=== PATIENT | female | born 1935 | race Caucasian/White ===

== ENCOUNTER 2018-02-12 10:58 | Day surgery (SDC) | payer MEDICARE, OTHER ==
[2018-02-12] MEDS ORDERED: PROPOFOL 40 ML (13:02)
[2018-02-12] MEDS ORDERED: LIDOCAINE 2% (SDV) 5 ML INJ (13:02)
== END 2018-02-12 14:58 | disposition home or self-care (01) ==
LOC: GIL 10:58
DX: K29.60 Other gastritis without bleeding (principal); I10 Essential (primary) hypertension; Z86.010 Personal history of colon polyps; Z85.3 Personal history of malignant neoplasm of breast
CPT/HCPCS: 43239; 88305; 88312

== ENCOUNTER 2018-12-18 11:52 | Day surgery (SDC) | payer MEDICARE, OTHER ==
[2018-12-18] MEDS ORDERED: PROPOFOL 20 ML (13:56)
[2018-12-18] MEDS ORDERED: LIDOCAINE 2% (SDV) 5 ML INJ (13:56)
[2018-12-18] MEDS ORDERED: ONDANSETRON 4 MG INJ IV (14:00)
== END 2018-12-18 15:15 | disposition home or self-care (01) ==
LOC: GIL 11:52
DX: K29.50 Unspecified chronic gastritis without bleeding (principal); E03.9 Hypothyroidism, unspecified; I12.9 Hypertensive chronic kidney disease with stage 1 through stage 4 chronic kidney disease, or unspecified chronic kidney disease; N18.9 Chronic kidney disease, unspecified
CPT/HCPCS: 43239; 88305; 88312